=== PATIENT | female | born 1995 | race Caucasian/White ===

== ENCOUNTER 2024-07-13 15:47 | Outpatient (CLI) | payer OTHER, SELFPAY ==
--- NOTE | ~2024-07-13 | US_ITS ---
EXAMINATION: US OB <= 14 weeks fetus DATE: 07/13/2024 16:14 INDICATION: Uncertain dates. TECHNIQUE: Real-time transabdominal pelvic ultrasound was performed. COMPARISON: None. FINDINGS: The uterus measures 10.0 x 6.0 x 0.3 cm. There is an intrauterine gestational sac. A yolk sac is iden tified. The crown rump length measures 2.6 cm, which correlates with an estimated gestational age of 9 weeks and 3 day(s) (+/-) 6 day(s). heart motion is identified measuring 174 beats per minute (bpm) by M-mode Doppler. The right ovary measures 3.6 x 1.8 x 2.6 cm. The left ovary measures 2.9 x 1.6 x 2.1 cm. There is no free fluid in the pelvis. IMPRESSION: 1. Single living intrauterine gestation with estimated date of delivery of 02/12/2025. Reviewed, dictated and finalized at location A. IMPRESSION: 1. Single living intrauterine gestation with estimated date of delivery of 01/16.
== END 2024-07-13 15:48 ==
LOC: MICIMG 15:50
PROVIDERS: PCP Advanced Practice Midwife; Visit Provider Advanced Practice Midwife
DX: Z36.87 Encounter for antenatal screening for uncertain dates (principal)
CPT/HCPCS: 76801

== ENCOUNTER 2024-09-16 15:40 | Outpatient (CLI) | payer OTHER, SELFPAY ==
--- NOTE | ~2024-09-16 | US_ITS ---
US OB /maternal detail DATE: 09/16/2024 16:22 INDICATION: anatomy screen TECHNIQUE: Real-time imaging and Doppler analysis COMPARISON: 07/13/2024 obstetrical ultrasound FINDINGS: Live rosas intrauterine gestation, fetus in breech presentation. movement is visu alized. heart rate of 133 bpm. Anterior placenta, lateral margin 4.2 cm above the internal os. Cervical length: 3.7 cm. Subjectively normal amount of amniotic fluid. ventricles, choroid plexus and cerebellum cisterna magna appear normal. Normal nuchal fold. Fet al upper lip normal. spine intact. diaphragm intact. Fluid demonstrated stomach and urinary bladder. No evidence of hydronephrosis. Three-vessel cord with normal insertion. 4 extremities are demonstrated. Biparietal diameter 4.24 cm; 18 weeks 6 days Head circumference 15.92 cm; 18 weeks 5 days Abdominal circumference 12.95 cm; 18 weeks 3 days Femur length 2.69 cm; 18 weeks 1 day Composite age by Hadlock formula is 18 weeks 4 days +/- 1 week 2 days with GLENYS of 02/13/2025. Estimated weight is 238.6 +/- 30 6 g. Estimated weight-GP: 28.1% Head circumference/abdominal circumference 1.23, within normal range of 1.0, 951.27 Femur length/head circumference 16.90, within normal range of 15.97-18.17 IMPRESSION: Breech presentation Estimated gestational age of 18 weeks 4 days +/- 1 week 2 days; GLENYS: 02/13/2025 Reviewed, dictated and finalized at Location A. Reviewed, dictated and finalized at location A.
== END 2024-09-16 15:41 | disposition home or self-care (01) ==
LOC: MICIMG 15:40
PROVIDERS: PCP Advanced Practice Midwife; Visit Provider Obstetrics & Gynecology Gynecology
DX: Z36.9 Encounter for antenatal screening, unspecified (principal); Z3A.18 18 weeks gestation of pregnancy
CPT/HCPCS: 76805

== ENCOUNTER 2025-02-10 04:13 | Inpatient (IN) | payer OTHER, SELFPAY ==
[2025-02-10] VITALS (100 sets, daily range): BP systolic 74–158; BP diastolic 30–99; PULSE 78–126; RESP 14–16; TEMP 36.3–36.8; O2SAT 96–100; BMI 35.9
--- OUTSIDE RECORDS SUMMARY | 2025-02-10 04:18 | XMS_ITS | Clinical Summary ---
Author Organization [facility] er Address [address] [place] [address] Care Team Providers Care Product Safety Head Name Role Phone Unavailable Primary Care Provider Unavailabl e Allergies No known active allergies Medications doxylamine (UNISOM) 25 mg tablet Take 25 mg by mouth nightly as needed for sleep Active folic acid (FOLVITE) 400 mcg tabletIndications :Encounter for supervision of normal first in first trimester TAKE 1 TABLET BY MOUTH DAILY. 30 tablet 11 2 Active Additional Information Patient not taking.Reported on 02/23/2023 docusate sodium (COLACE) 100 mg capsuleIndication s:constipation Take 1 capsule (100 mg total) by mouth 2 (two) times a day Take one capsule twice daily for 7 days. Then take up to one capsule twice daily as needed for constipation/st raining. If having loose stools, stop medication. Restart if constipation/st raining. 40 capsule 3 Active Additional Information Patient not taking.Reported on 02/23/2023 acetaminophen (TYLENOL) 500 mg tablet Take 2 tablets (1,000 mg total) by mouth every 6 (six) hours Take 1000 mg every 6 hours for 3 days, then take up to 1000 mg every 6 hours as needed for pain. 30 tablet 3 Active Additional Information Patient not taking.Reported on 02/23/2023 oxyCODONE (ROXICODONE) 5 mg immediate release tabletIndications :Pain Take 1 tablet (5 mg total) by mouth every 4 (four) hours as needed for pain Take 5 mg every 4 hours as needed for pain not controlled by other medications. Gradually decrease amount taken. 24 tablet 3 Active Additional Information Patient not taking.Reported on 02/23/2023 ibuprofen (ADVIL,MOTRIN) 600 mg tablet Take 1 tablet (600 mg total) by mouth every 6 (six) hours Take one tablet every 6 hours for 3 days, then take up to one tablet every 6 hours as needed for pain. 30 tablet 3 Active Additional Information Patient not taking.Reported on 02/23/2023 vitamin ferrous fumarate-folic () 28 mg iron- 800 mcg tabletIndications :lactating mother Take 1 tablet by mouth daily 30 tablet 11 3 Active Additional Information Patient not taking.Reported on 02/23/2023 norethindrone (MICRONOR) 0.35 mg tabletIndications : Contraception Take 1 tablet (0.35 mg total) by mouth daily 28 tablet 12 3 Active hydrocortisone 2.5 % creamIndications: Hemorrhoids, unspecified hemorrhoid type Apply topically 2 (two) times a day 28 g 4 Active Active Problems Problem Noted Date Diagnosed Date History of delivery 02/23/2023 Arrested active phase of labor 01/22/2023 Overview (01/22/2023): Added automatically from request for surgery [id number] Resolved Problems Problem Noted Date Diagnosed Date Resolved Date Labor and delivery, indication for care 01/22/2023 02/23/2023 Cephalopelvic disproportion 01/22/2023 02/23/2023 Overview (01/22/2023): Added automatically from request for surgery [id number] 40 weeks gestation of 01/22/2023 02/23/2023 Overview (01/22/2023): Added automatically from request for surgery [id number] Encounter for supervision of normal in third trimester 11/20/2022 02/23/2023 31 weeks gestation of 11/20/2022 02/23/2023 Nausea/vomiting in 07/08/2022 02/23/2023 Well woman exam with routine gynecological exam 07/28/2021 11/06/2022 Immunizations Immunization Administration Dates Next Due Tdap 10/24/2022,01/15/2021 Varicella 01/25/2023(Deferred: Patient Ref used) Surgical History Surgery Date Site/Laterality Comments WISDOM TOOTH EXTRACTION Social History Tobacco Use Types Packs/Day Years Used Date Smoking Tobacco: Never Smokeless Tobacco: Never Tobacco Cessation:Counseling Given: Not Answered PHQ-2 Answer Date Recorded PHQ-2 Total Score (If total score is 3 or more points, staff should administer the PHQ-9) 0 02/23/2023 Personal Safety Answer Date Recorded Getting School Help Needed Denies 12/19 Comments Unknown Sex and Gender Information Value Date Recorded Sex Assigned at Not on file Legal Sex Female 9:27 PM SQUIRREL MAN Gender Identity Not on file Sexual Orientation Not on file Obstetrics History Para Term AB IAB SAB Ectopic Multiple Livin g Live Births 1 1 1 0 0 0 0 0 0 1 1 Date Outcome GA Total Labor Labor/2nd/3rd Weight Sex Type Anes PTL Emily A1 A5 Name Clin 023 Term 40w 2d 8h 00m 3h 30m/4h 29m/0h 01m 3.374 kg (7 lb 7 oz) F C-Sec tion Epidur al N Livin g 8 9 HUTSO N,GIR LMAGG IE Tez Wolff MD Complications:None Delivery Location:This [facility] ([facility]) Last Filed Vital Signs Vital Sign Reading Time Taken Comments Blood Pressure 118/76 12/22/2023 1:20 PM SQUIRREL MAN Pulse 80 12/22/2023 1:20 PM SQUIRREL MAN Temperature 36.6 C (97.8 F) 01/25/2023 8:00 PM CDT Respiratory Rate 14 02/23/2023 10:38 AM CDT Oxygen Saturation 99% 12/22/2023 1:20 PM SQUIRREL MAN Inhaled Oxygen Concentration - - Weight 75.8 kg (167 lb) 12/22/2023 1:20 PM SQUIRREL MAN Height 157.5 cm (5' 2 ) 12/22/2023 1:20 PM SQUIRREL MAN Body Mass Index 30.54 12/22/2023 1:20 PM SQUIRREL MAN Plan of Treatment Health Maintenance Due Date Last Done Comments Varicella Vaccines (1 of 2 - 13+ 2-dose series) 2009 Hepatitis B Screening 2014 Cervical Cancer Screening 01/01/2023 01/01/2022 Depression Screening 02/24/2024 02/23/2023, 01/29/2023 Covid-19 Vaccine (3 - 2023-2 5 season) 2024 03/26/2021, 02/21/2021 Influenza Vaccine (#1) 2024 Regular Well Visit/Exam 18-64 12/22/2024, 07/24/2021 DTaP/Tdap/Td Vaccine (3 - Td or Tdap) 10/24/2032 10/24/2022, 01/15/2021 Hepatitis C Screening Completed 07/08/2022 HPV Vaccines Aged Out No longer eligi ble based on patient's age to complete this topic Pneumococcal vaccine <65 Aged Out No longer eligible based on patient's age to complete this topic Procedures Procedure Name Priority Date/Time Associated Diagnosis Comments HEPATITIS C ANTIBODY Routine 07/08/2022 10:10 AM CDT Encounter for supervision of normal first in first trimester PAP WITH REFLEX TO HIGH RISK HPV Routine 01/01/2022 9:38 AM SQUIRREL MAN Well woman exam with routine gynecological exam from Last 3 Months or Most Recently Relevant to Health Maintenance Results * Hepatitis C antibody (07/08/2022 10:10 AM CDT) Hep C Ab Nonreactive Nonreactive [facility] Comment: Antibodies to HCV not detected. Does NOT exclude the possibility of recent exposure to HCV. Testing performed by: [facility], [address] [place] [address] Blood 07/08/2022 10:1 0 AM CDT 07/08/2022 6:25 PM CDT us Tez Powers MD LAB MICROBIOLOGY - GENERAL O RDERABLES Edited Result - Final [facility] [address] [place] [address] * Pap with reflex to High Risk HPV (01/01/2022 9:38 AM SQUIRREL MAN) CLINICAL INFORMATION: ANNUAL [facility] LMP UNKNOWN [facility] Previous Pap INFORMATION NOT PROVIDED [facility] Prev. Bx INFORMATION NOT PROVIDED [facility] SOURCE: Cervix, Endocervix [facility] Pap, specimen adequacy [facility] Comment: Satisfactory for evaluation. Endocervical/transformation zone component present. Age and/or menstrual status not provided HPV interp Negative for intraepithelial lesion or malignancy. [facility] COMMENTS This Pap test has been evaluated with computer assisted technology. [facility] Software Quality Tester [facility] Comment: CESILIA CT(ASCP) CT screening location: [place] [address] [address] [address] Review senior it recruiter [facility] Comment: ANI CT(ASCP) CT screening location: [place] [address] [address] [address] Comment [facility] Comment: EXPLANATORY NOTE: The Pap is a screening test for cervical cancer. It is not a diagnostic test and is subject to false negative and false positive results. It is most reliable when a satisfactory sample, regularly obtained, is submitted with relevant clinical findings and history, and when the Pap result is evaluated along with historic and current clinical information. Thin prep 01/01/2022 9:38 AM SQUIRREL MAN 01/02/2022 3:47 AM SQUIRREL MAN Tez Powers MD LAB CYTOLOGY ORDERABLES Jesica l Result [place] [address] [place] [address] from Last 3 Months or Most Recently Relevant to Health Maintenance Insurance [facility] Advance Directives For more information, please contact: [phone] * Full Code (Latest Code Status on File) Date Activated Date Inactivated Comments 01/22/2023 6:00 PM 01/26/2023 3:42 AM * Full Code Date Activated Date Inactivated Comments 01/22/2023 1:51 AM 01/22/2023 6:00 PM Full CPR in ca se of cardiopulmonary arrest
--- OUTSIDE RECORDS SUMMARY | 2025-02-10 04:18 | XMS_ITS | Referral Summary ---
Author Organization [facility] er Address [address] [place] [address] Care Team Providers Care Robotic Welder Name Role Phone Unavailable Primary Care Provider [...] (01/22/2023): Added automatically from request for surgery [id number] Resolved Problems Problem Noted Date Diagnosed Date Resolved Date Labor and delivery, indication for care 01/22/2023 02/23/2023 Cephalopelvic disproportion 01/22/2023 02/23/2023 Overview (01/22/2023): Added automatically from request for surgery [id number] 40 weeks gestation of 01/22/2023 02/23/2023 Overview (01/22/2023): Added automatically from request for surgery [id number] Encounter for supervision of normal in third trimester 11/20/2022 02/23/2023 31 weeks gestation of 11/20/2022 02/23/2023 Nausea/vomiting in 07/08/2022 02/23/2023 Well woman exam with routine gynecological exam 07/28/2021 11/06/2022 Immunizations Immunization Administration Dates Next Due Tdap 10/24/2022,01/15/2021 Varicella 01/25/2023(Deferred: Patient Ref used) Social History Tobacco Use Types Packs/Day Years [...] on file Legal Sex Female 9:27 PM MANAGER SCIENCE Gender Identity Not on file Sexual Orientation Not on file Last Filed Vital Signs Vital Sign Reading Time Taken Comments Blood Pressure 118/76 12/22/2023 1:20 PM MANAGER SCIENCE Pulse 80 12/22/2023 1:20 PM MANAGER SCIENCE Temperature 36.6 C (97.8 F) 01/25/2023 8:00 PM CDT Respiratory Rate 14 02/23/2023 10:38 AM CDT Oxygen Saturation 99% 12/22/2023 1:20 PM MANAGER SCIENCE Inhaled Oxygen Concentration - - Weight 75.8 kg (167 lb) 12/22/2023 1:20 PM MANAGER SCIENCE Height 157.5 cm (5' 2 ) 12/22/2023 1:20 PM MANAGER SCIENCE Body Mass Index 30.54 12/22/2023 1:20 PM MANAGER SCIENCE Plan of Treatment Not on file Procedures Procedure Name Priority Date/Time Associated Diagnosis Comments HEPATITIS C ANTIBODY Routine 07/08/2022 10:10 AM CDT Encounter for supervision of normal first in first trimester PAP WITH REFLEX TO HIGH RISK HPV Routine 01/01/2022 9:38 AM MANAGER SCIENCE Well woman exam with routine gynecological exam from Last 3 Months or Most Recently Relevant to Health Maintenance Results * Hepatitis C antibody (07/08/2022 10:10 AM CDT) Hep C Ab Nonreactive Nonreactive [facility] Comment: Antibodies to HCV not detected. Does NOT exclude the possibility of recent exposure to HCV. Testing performed by: [facility], [address] [facility], [place]., [address] Blood 07/08/2022 10:1 0 AM CDT 07/08/2022 6:25 PM CDT Tez Powers MD LAB MICROBIOLOGY - GENERAL O RDERABLES Edited Result - Final [facility] [address] [facility] Department [place] [address] * Pap with reflex to High Risk HPV (01/01/2022 9:38 AM MANAGER SCIENCE) CLINICAL INFORMATION: ANNUAL [facility] LMP UNKNOWN [facility] Previous Pap INFORMATION NOT PROVIDED [facility] Prev. Bx INFORMATION NOT PROVIDED [facility] SOURCE: Cervix, Endocervix [facility] Pap, specimen adequacy [facility] Comment: Satisfactory for evaluation. Endocervical/transformation zone component present. Age and/or menstrual status not provided HPV interp Negative for intraepithelial lesion or malignancy. [facility] COMMENTS This Pap test has been evaluated with computer assisted technology. [facility] Epic Prelude Analyst [facility] Comment: YTali, CT(ASCP) CT screening location: [place] [address] [place] [address] Review career technology teacher [facility] Comment: ANI, CT(ASCP) CT screening location: [place] [address] [place] [address] Comment [facility] Comment: EXPLANATORY NOTE: The Pap is a [...] clinical information. Thin prep 01/01/2022 9:38 AM MANAGER SCIENCE 01/02/2022 3:47 AM MANAGER SCIENCE Tez Powers MD LAB CYTOLOGY ORDERABLES Jesica l Result Performing Organization Address City/[facility]/ZIP Co de Phone Number [place] [address] [place] [address] from Last 3 Months or Most Recently Relevant to Health Maintenance Insurance [facility] [place] [facility] Advance Directives For more information, please contact: [phone] * Full Code (Latest Code Status on File) Date Activated Date Inactivated Comments 01/22/2023 6:00 PM 01/26/2023 3:42 AM * Full Code Date Activated Date Inactivated Comments 01/22/2023 1:51 AM 01/22/2023 6:00 PM Full CPR in ca se of cardiopulmonary arrest
--- OUTSIDE RECORDS SUMMARY | 2025-02-10 04:19 | XMS_ITS | Data Portability ---
Author Organization [facility] Address [address] [place] [address] Care Team Providers Care Nursing Staffing Coordinator Name Role Phone RYLAN NAPIER Primary Care Provider [phone] Assessment Encounter Date Assessment Date Assessment LastModified by Organization Details LastModified Time 12/30/2024 12/30/2024 Patient is _33__weeks . Discussed plan. Not available 12/30/2024 10:56:05 01/11/2025 01/11/2025 Patient is _35__weeks . Discussed plan. Not available 01/11/2025 11:33:43 01/27/2025 01/27/2025 Patient is _37__weeks . Discussed plan. [email or web address] Not available 01/27/2025 12:15:06 02/03/2025 02/03/2025 Patient is _38__weeks . Discussed plan. [email or web address] Not available 02/03/2025 11:44:04 Plan of Treatment Reminders Order Date Submit Date Provider Last Modified By Organization Details Last Modified Time Details Appointments None record ed. Lab None record ed. Referral None record ed. Procedures None record ed. Surgeries None record ed. Imaging None record ed. Medication Orders None record ed. Patient TargetsNo targets recorded. Patient InstructionsNo instructions recorded. Reason for Referral None Reported. Results Created Date Observation Date Name Description Value Unit Range Abnormal Flag Note LastModifiedBy Organization Detail LastModifiedTime 12/01/19 25 12/01/2024 CT/GC AND TRICH OMONA S VAGIN ROSA M (RRNA ), URINE chlamydia trachomatis, PCR Negati ve negati ve Not Available [facility] (Lab) [address], [place], [address], 12/04/2024 02:18:43 12/01/19 25 12/01/2024 CT/GC AND TRICH OMONA S VAGIN ROSA M (RRNA ), URINE neisseria gonorrhoeae, PCR Negati ve negati ve Not Available [facility] (Lab) [address], [place], [address], 12/04/2024 02:18:43 12/01/19 25 12/01/2024 CT/GC AND TRICH OMONA S VAGIN ROSA M (RRNA ), URINE trichomonas vaginalis ribosomal RNA (rrna) Negati ve negati ve Not Available [facility] (Lab) [address], [place], [address], 12/04/2024 02:18:43 12/01/1912/01/2024 CULTU RE: URINE result report SEE RESULT S BELOW Test: Cultu re: Urine Speci men Sourc e: Urine - Clean Catch Speci men Type: Urine Speci men Date: 2024 1502 Resul t Date: 2024 0114 Resul t Statu s: Final resul t Abnor mal: No Resul ting Lab: [facility] [address] [place] [address] Tel: CULTU RE ----- ----- ----- --- Organ ism(s ) consi stent with uroge nital or skin raymon . Repea t cultu re if sympt oms indic ate. Not Available [facility] (Lab) [address], [place], [address], 12/04/2024 02:18:44 12/01/1912/01/2024 drug scree n, urine Amphetamines : negati ve Not Available [facility] [address], [place], [address], 12/01/2024 11:11:36 12/01/192025 drug scree n, urine Cannabinoids : negati ve Not Available [facility] [address], [place], [address], 12/01/2024 11:11:36 12/01/19 25 12/01/2024 drug scree n, urine Cocaine: negati ve Not Available [facility] [address], [place], [address], 12/01/2024 11:11:36 12/01/19 25 12/01/2024 drug scree n, urine Opiates: negati ve Not Available [facility] [address], [place], [address], 12/01/2024 11:11:36 12/01/19 25 12/01/2024 drug scree n, urine Phenocyclidi ne: negati ve Not Available [facility] [address], [place], [address], 12/01/2024 11:11:36 12/01/19 25 12/01/2024 drug scree n, urine Barbiturates : negati ve Not Available [facility] [address], [place], [address], 12/01/2024 11:11:36 12/01/19 25 12/01/2024 drug scree n, urine Benzodiazepi shania: negati ve Not Available [facility] [address], [place], [address], 12/01/2024 11:11:36 12/01/19 25 12/01/2024 drug scree n, urine Ethanol: negati ve Not Available [facility] [address], [place], [address], 12/01/2024 11:11:36 12/01/19 25 12/01/2024 drug scree n, urine Hallucinogen s: negati ve Not Available [facility] [address], [place], [address], 12/01/2024 11:11:36 12/01/1912/01/2024 drug scree n, urine Inhalants: negati ve Not Available [facility] [address], [place], [address], 12/01/2024 11:11:36 12/01/19 25 12/01/2024 drug scree n, urine Anabolic Steroids: negati ve Not Available [facility] [address], [place], [address], 12/01/2024 11:11:36 12/01/19 25 12/01/2024 drug scree n, urine Other: negati ve Not Available [facility] [address], [place], [address], 12/01/2024 11:11:36 01/11/20 25 01/11/2025 CULTU RE: GROUP B STREP SCREE N, REFLE X SUSCE PTIBI LITY result report SEE RESULT S BELOW Test: Cultu re: Group B Strep , Refle x Susce ptibi lity ([facility] ) Speci men Sourc e: Vagin a/Rec yeni Speci men Type: Vagin al/Re ctal Speci men Date: 2024 1455 Resul t Date: 025 1400 Resul t Statu s: Final resul t Abnor mal: No Resul ting Lab: [facility] [address] [address] Tel: CULTU RE ----- ----- ----- --- No Group B strep isola roseanne at 2 days (prem ctive broth enhan cemen t) Not Available [facility] (Lab) [address], [place], [address], 01/14/2025 15:04:56 12/01/1912/01/2024 US, obste tric, follo w-up No observ ation record ed. [email or web address] [facility] [address], [place], [address], 12/01/2024 13:11:23 12/01/19 25 12/01/2024 US, obste tric, follo w-up No observ ation record ed. [email or web address] [address], [place], [address], 12/07/2024 07:33:07 Result Notes None recorded. Problems Name Problem SNOMED Code Status Onset Date Resolution Date Notes Provider Name and Address Organization Details Recorded Time 04488899 Active [address] [facility], [facility] 5 11:14:39 section Active pushed x 5 hours, 40.3 weeks, 7 lbs Keyla Meng CNM [address], [place], [address], [place] [facility] 5 12:26:07 Problem Notes None recorded. Procedures Surgical History Date Name Laterality Status Provider Name and Address Organization Details Recorded Time 4 Date of Last Pap Smear completed Briana Palomares [facility] 12/18/2024 13:20:44 3 section completed Briana Palomares [facility] 12/16/2024 15:37:35 4 extraction of wisdom tooth completed Briana Palomares [facility] 12/16/2024 15:37:44 Imaging Results Imaging Date Name Status LastModified by Organiz ation Details LastModified Time 12/01/2024 US, obstetric, follow-up completed [email or web address] [facility] [address], [place], [address], 12/01/2024 13:11:12/01/2024 US, obstetric, follow-up completed [address], [place], [address], 12/07/2024 07:33:07 Procedure Notes None recorded. Medical Equipment None Reported. Allergies No known drug allergies Medications Name Sig Start Date Stop Date Status Note LastModified by Organization Details LastModified Time fluconazole 150 mg tablet take 1 tablet by oral route once 09/07 completed Not Available Not Available Not Available hydrocortis one 2.5 % topical cream APPLY TOPICALLY TO THE AFFECTED AREA TWICE DAILY 12/01 completed Not Available Not Available Not Available Estarylla 0.25 mg-0.035 mg tablet TAKE 1 TABLET DAILY 12/01 completed Not Available Not Available Not Available Vitals Date Recorded Body height Body mass index (BMI) Body weight Systolic blood pressure Diastolic blood pressure Provider Name and Address Organization Details Last Updated DateTime 12/30/2024 165.1 cm 32.6 kg/m2 45400.10 452 g 116 mm[Hg] 79 mm[Hg] Briana Palomares [facility] 10:52:47 Date Recorded Body height Body mass index (BMI) Body weight Systolic blood pressure Diastolic blood pressure Provider Name and Address Organization Details Last Updated DateTime 01/11/2025 165.1 cm 33.1 kg/m2 71499.88 163 g 120 mm[Hg] 82 mm[Hg] Briana Palomares [facility] 11:09:45 Date Recorded Body height Body mass index (BMI) Body weight Systolic blood pressure Diastolic blood pressure Provider Name and Address Organization Details Last Updated DateTime 01/20/2025 165.1 cm 33.1 kg/m2 14642.88 g 124 mm[Hg] 81 mm[Hg] Maddi Cabrera [facility] 10:34:35 Date Recorded Body height Body mass index (BMI) Body weight Systolic blood pressure Diastolic blood pressure Provider Name and Address Organization Details Last Updated DateTime 01/27/2025 165.1 cm 33.4 kg/m2 29877.07 g 118 mm[Hg] 78 mm[Hg] Keyla Meng, [facility] [address], [place], [address], [facility] 5 12:09:06 Date Recorded Body height Body mass index (BMI) Body weight Systolic blood pressure Diastolic blood pressure Provider Name and Address Organization Details Last Updated DateTime 02/03/2025 165.1 cm 33.6 kg/m2 08558.66 g 125 mm[Hg] 81 mm[Hg] Briaan Palomares [facility] 5 11:41:48 Social History Question Answer Notes LastModified by Organizat ion Details LastModified Time Tobacco Smoking Status Never Smoker Carey muniz, [facility] 09/07/2020 15:23:33 What Is Your Level Of Alcohol Consumption? None [email or web address] Information not available 12/16/2024 If You Are , What Was Your Level Of Alcohol Consumption Prior To ? Occasional [email or web address] Information not available 12/16/2024 Are You Blind Or Do You Have Difficulty Seeing? No [email or web address] Information n ot available 12/16/2024 What Is Your Level Of Caffeine Consumption? Occasional [email or web address] Information not available 12/16/2024 In The 14 Days Before Symptom Onset, Have You Had Close Contact With A Laboratory-confirm ed COVID-19 While That Case Was Ill? No [email or web address] Information n ot available 12/16/2024 In The 14 Days Before Symptom Onset, Have You Had Close Contact With A Person Who Is Under Investigation For COVID-19 While That Person Was Ill? No [email or web address] Information not available 12/16/2024 Have You Been To An Area Known To Be High Risk For COVID-19? No [email or web address] Information not available 12/16/2024 Are You Deaf Or Do You Have Serious Difficulty Hearing? No [email or web address] Information not available 12/16/2024 What Type Of Diet Are You Following? REGULAR [email or web address] Information n ot available 12/16/2024 Do You Use Your Seat Belt Or Car Seat Routinely? Yes [email or web address] Information not available 12/16/2024 Do You Have Smoke And Carbon Monoxide Detectors In Your Home? Yes [email or web address] Information not available 12/16/2024 Do You Feel Stressed (tense, Restless, Nervous, Or Anxious, Or Unable To Sleep At Night)? [id number] [email or web address] Information not available 12/16/2024 Do You Use Any Illicit Or Recreational Drugs? No [email or web address] Information not available 12/16/2024 Do You Use Sunscreen Routinely? Yes [email or web address] Information not available 12/16/2024 Has Tobacco Cessation Counseling Been Provided? No [email or web address] Information not available 12/16/2024 Do You Or Have You Ever Used Any Other Forms Of Tobacco Or Nicotine? No Information not available 12/16/2024 Sex: Unknown Functional Status Question Answer Note LastModified by Organizat ion Details LastModified Time Do you have difficulty walking or climbing stairs? No [email or web address] Information not available 12/16/2024 Are you able to walk? YESWOREST [email or web address] Information not available 12/16/2024 Are you able to care for yourself? Yes [email or web address] Information not available 12/16/2024 Do you have difficulty dressing or bathing? No [email or web address] Information not available 12/16/2024 What is your exercise level? Occasional [email or web address] Information not available 12/16/2024 Mental Status None recorded. Family History Relationship Description Onset Age of this Age Resolved Age Notes LastModified by Organization Details LastModified Time Paternal Grandfather Diabetes mellitus [email or web address] Not available 2019 15:23:16 Mother Diabetes mellitus [email or web address] Not available 12/16 15:34:08 Notes:heart problems- pat. g randfather Mother: No history of Cervical cancer Paternal grandfather: Heart problems, Diabetes mellitus Medical History Condition Response Allergies (Food, seasonal, environmental ) N Other N Drug/Latex Allergies/Reactions N Blood Transfusion N Breast Cancer N Dermatologic Disorders N Lung Disease N Defects or Inherited Disease N Breast Problem N Gestational Diabetes N Hematologic disorders N Anesthesia Complications N History of STI N Deep Vein Thrombosis N Polycystic ovary syndrome N Anxiety Disorder N Autoimmune disease N Arthritis N Polyps N Infertility N Acid Reflux (GERD) N History of abnormal pap N Cancer N Varicosities N Stroke N Neurologic/Epilepsy N Endometriosis N High Cholesterol N Fibromyalgia N Headaches N Kidney Disease N Heart Problems N Thyroid Problems N Kidney or Bladder Problems N GI Problems N Eating Disorder N Anemia N Art (IVF or FET) N Psychiatric Illness N Ovarian Cancer N Diabetes N Pulmonary (TB, Asthma) N Hepatitis/Liver Disease N No Past Medical History N Eczema N Urinary Tract Infection N Abuse/Domestic Violence N Asthma N Trauma/Violence N Depression/ depression N Heart Disease N Pre-Eclampsia N Hypertension N Osteoporosis N Thrombophilias N Gynecological History Statement/Question Response Abnormal Pap N Flow Moderate Date of Last Colonoscopy Date of LMP 04/16/2024 Sexually Active? Y Date of DEXA bone scan STIs/STDs N Date of Last Pap Smear 07/11/2024 Sexual Problems? N Current Control Method LMP Approximate Obstetrics History GPAL:G 2 P 1 0 0 1 Type Value Full Term 1 Living 1 Total 2 Past Encounters Encounter ID Performer Location Encounter Start Date Encounter Closed Date Diagnosis/Indication Diagnosis SNOMED-CT Code Diagnosis ICD10 Code Diagnosis Note [id number] Annamaria Mosher , [facility] [address] [address] 09/07/2020 15:06:32 09/07/2020 17:00:25 Gynecologic examination 30609266 Z01.419 Take Calcium with Vitamin D 1200mg daily if not receiving in daily diet. It is strongly advised to have an annual flu shot and up can obtain at most pharmacies . If you have not had a TDap shot in the last 10 years you should obtain one as well. Discussed with patient & provided with informatio n regarding Gardisil vaccine to prevent the 4 strains for HPV that cause cervical cancer if under age 26. Encourage safe sexual practices, to use condoms and limit partners if not already in a monogamous relationsh ip. Do monthly self breast exams. Have mammogram yearly or every other year depending on family history. BRCA testing is now available for patients with strong genetic history of female cancer. If interested contact the office. Engage in daily exercise of low impact aerobic exercise 45-60 minutes 4-5 times weekly. Avoid tobacco and illicit drugs as well as using moderation with alcohol intake less than 1-2 8 oz beverages daily. This lifestyle behavior pattern will lead to less health conditions and longer life span. If BMI greater than 25 weight watchers or dietary consult advised. Patient received above instructio ns, and questions have been answered. If you have any questions please call or respond to this email. Patient was made aware of the patient portal and may obtain a paper copy of today's plan if desired. Opts to defer pap this year due to monogamous relationsh ip & norm pap hx. Declines need std screening. 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 [id number] Tiffany Galindoconrado [facility] [address] [address] 12/01/2024 09:30:18 12/01/2024 10:27:36 Medical examination for suspected condition 041561025 Z03.74 Z3A.29 [id number] Briana Palomares [facility] [address] [address] 12/01/2024 09:46:43 12/01/2024 12:39:18 Gestation period, 29 weeks 15722924 Z3A.29 Routine an tenatal care 983671962 Z34.90 Venereal d isease screening 776614825 Z11.3 [id number] [facility] [address],[place] [address] 12/16/2024 15:00:08 12/16/2024 15:57:01 Gestation period, 31 weeks 63721024 Z3A.31 [id number] [facility] [address] [address] 12/30/2024 10:28:15 12/30/2024 11:39:38 Gestation period, 33 weeks 57939111 Z3A.33 [id number] [facility] [address] [address] 01/11/2025 10:30:45 01/11/2025 11:38:55 Gestation period, 35 weeks 81151522 Z3A.35 [id number] BAM MEDINA MD [facility] [address],[place] [address] 01/20/2025 09:44:03 01/20/2025 11:18:53 Uterine scar from previous surgery affecting 05974049 O34.29 Gestation period, 36 weeks 52079502 Z3A.36 [id number] Keyla Meng [facility] [address] [address] 01/27/2025 12:01:06 01/27/2025 12:20:12 Gestation period, 37 weeks 96747846 Z3A.37 [id number] Keyla Meng [facility] [address] [address] 02/03/2025 10:56:36 02/03/2025 12:13:26 Gestation period, 38 weeks 19425235 Z3A.38 Health Concerns Section Related Observation LastModified by Organization Detai ls LastModified Time None Recorded Concern Status LastModified by Organization Details LastModified Time None Recorded Advance Directives Directive None Recorded Payers Encounter Date Sequence Insurance Name Policy Number Policy Jones Covered Member ID Jones Member ID Guarantor Name 12/30/2024 1 [employer] Chu Stroud [id number] 01/11/2025 1 [employer] [place] [id number] 01/20/2025 1 [employer] Chu Maximus [id number] 01/27/2025 1 [employer] [place] [employer] [id number] 02/03/2025 1 [employer] [place] [id number] OBGyn Episode Ob Episode Information Episode Created Date Number of Fetuses Patient Bloodtype Patient rh Status Prepregnancy Weight lbs Domestic Partner Domestic Partner Phone Father Name Oil Treater Status 12/16/19 25 1 CLOSED Fetus Data First Name Last Name Admitted to NICU Weight (g) Sex Living Outcome Pediatric Complications Fetus ID Race Codes Race Delivery Type 3175.14 4 F Full Term [id number] Primary Toby Calculation Initial Toby Date Initial Exam Date Initial Exam Provider Initial Ultrasound Date Last Menstrual Period Date Ultra Sound Weeks Gestation 0 Eighteen To Twenty Week Toby Update Ultra Sound Date Fundal Height At Umbil Quickening Date Ultra Sound Latest Weeks Gestation Final Toby Confirmed By Final Toby Confirmed Date Final Toby Date Ultra Sound Latest Days Gestation 0 0 Menstrual History Last Menstrual Date Menses Monthly On Bcp Conception Prior Menses Frequency Hcg Plus Date Menarche Onset Age Delivery Information Delivery Date Delivery Type Labor Anesthesia Weeks Gestation Incision Type Labor Labor Length Hrs Delivered By Post Complications Tubal Sterilization Discharge Date Comments 3 40 Discharge Information Feeding Method Contraceptive Method Maternal HG B and HCT Levels Ob Episode Information Episode Created Date Number of Fetuses Patient Bloodtype Patient rh Status Prepregnancy Weight lbs Domestic Partner Domestic Partner Phone Father Name Oil Treater Status 12/01/19 25 1 A Positive 177 Chu Maximus OPEN Fetus Data First Name Last Name Admitted to NICU Weight (g) Sex Living Outcome Pediatric Complications Fetus ID Race Codes Race Delivery Type [id number] Problems Problem Notes Problem Name Start Date End Date Resolution Snomed Code Not e section [id number] pus hed x 5 hours, 40.3 weeks, 7 lbs Toby Calculation Initial Toby Date Initial Exam Date Initial Exam Provider Initial Ultrasound Date Last Menstrual Period Date Ultra Sound Weeks Gestation 08/08/2024 08/08/2024 05/14/2024 13 Eighteen To Twenty Week Toby Update Ultra Sound Date Fundal Height At Umbil Quickening Date Ultra Sound Latest Weeks Gestation Final Toby Confirmed By Final Toby Confirmed Date Final Toby Date Ultra Sound Latest Days Gestation 09/16/20 24 18 [email or web address] 12/01/2024 02/13/20 25 4 Pre- Flowsheet Flowsheet Date 12/01/2024 Farris Score Blood Edema Fundus Height Fundus Units Glucose Ketones Leukocytes Nitrite Labor Signs Protein Cervic Dilation Cervic Effacement Cervic Station none none trace Type Weight in lbs Pre/Post Dialysis Refused Weight 195.542839236221 BP Diastolic BP Location Tested BP Systolic BP Type 82 118 Fetus Heart Rate Present Fetus Movement A Yes Comments Patient states that has had rash on face and has cramping. reviewed precautions otc meds ok, transfer of care, reviewed previous discussed option for rpt, pt would like to try tolac, will have pt speak to md after next us, todays growth efw 31%, ok for tdap and rsv, order givem, reviewed records, f/u 2 weeks Flowsheet Date 12/16/2024 Farris Score Blood Edema Fundus Height Fundus Units Glucose Ketones Leukocytes Nitrite Labor Signs Protein Cervic Dilation Cervic Effacement Cervic Station none Type Weight in lbs Pre/Post Dialysis Refused 196.829310269257 BP Diastolic BP Location Tested BP Systolic BP Type 83 129 Fetus Heart Rate Present Fetus Movement A Yes Comments Patient is having some cramp ing. discussed meeting MD prefers female. precautions and education ok to do otc vit d 2000 iu daily, passed GCT, +FM Flowsheet Date 12/30/2024 Farris Score Blood Edema Fundus Height Fundus Units Glucose Ketones Leukocytes Nitrite Labor Signs Protein Cervic Dilation Cervic Effacement Cervic Station neg trace 33 cm Type Weight in lbs Pre/Post Dialysis Refused 196.754799072744 BP Diastolic BP Location Tested BP Systolic BP Type 79 116 Fetus Heart Rate Present A 145 Present Fetus Movement A Yes Comments Patient is having cramping, swelling and nausea. +FM, call for preadmit, precautions and education Flowsheet Date 01/11/2025 Farris Score Blood Edema Fundus Height Fundus Units Glucose Ketones Leukocytes Nitrite Labor Signs Protein Cervic Dilation Cervic Effacement Cervic Station neg trace Type Weight in lbs Pre/Post Dialysis Refused 199.262547053646 BP Diastolic BP Location Tested BP Systolic BP Type 82 120 Fetus Heart Rate Present Fetus Movement A Yes Comments Patient is having some disch arge, swellling and nausea. +FM< US 127 FHR, GBS collected, precautions and education f/u one week Flowsheet Date 01/20/2025 Farris Score Blood Edema Fundus Height Fundus Units Glucose Ketones Leukocytes Nitrite Labor Signs Protein Cervic Dilation Cervic Effacement Cervic Station neg none Type Weight in lbs Pre/Post Dialysis Refused Weight 199.376945542829 BP Diastolic BP Location Tested BP Systolic BP Type 81 L arm 124 sitting Fetus Heart Rate Present A 130 Fetus Movement A Yes Comments Patient c/o Pelvic pain. Goo d movement. No bleeding or cramping. GBS negative. RTC 1 week. Flowsheet Date 01/27/2025 Farris Score Blood Edema Fundus Height Fundus Units Glucose Ketones Leukocytes Nitrite Labor Signs Protein Cervic Dilation Cervic Effacement Cervic Station neg trace Type Weight in lbs Pre/Post Dialysis Refused Weight 201.215562789109 BP Diastolic BP Location Tested BP Systolic BP Type 78 118 Fetus Heart Rate Present Fetus Movement A Yes Comments Patient is having contractio ns, discharge and swelling. declines cervical exam, +FM, precautions and education preadmit complete f/u one week Flowsheet Date 02/03/2025 Fraris Score Blood Edema Fundus Height Fundus Units Glucose Ketones Leukocytes Nitrite Labor Signs Protein Cervic Dilation Cervic Effacement Cervic Station neg trace 1cm 60% -2 Type Weight in lbs Pre/Post Dialysis Refused Weight 202.977366007354 BP Diastolic BP Location Tested BP Systolic BP Type 81 125 Fetus Heart Rate Present A 138 Present Fetus Movement A Yes Comments Patient is having some contr actions, discharge and swelling. desires IOL will schedule for next week, +FM, precautions and education Menstrual History Last Menstrual Date Menses Monthly On Bcp Conception Prior Menses Frequency Hcg Plus Date Menarche Onset Age 0605/14/2023 Delivery Information Delivery Date Delivery Type Labor Anesthesia Weeks Gestation Incision Type Labor Labor Length Hrs Delivered By Post Complications Tubal Sterilization Discharge Date Comments Discharge Information Feeding Method Contraceptive Method Maternal HG B and HCT Levels
[2025-02-10] MEDS: LACTATED RINGERS 1,000 ML 125 ML IV CONT ×2 (05:07→06:28)
[2025-02-10] MEDS: OXYTOCIN 30 UNITS/NS 500 ML 30 UNITS/500 ML BAG IV CONT (05:10)
[2025-02-10 05:15] LABS: Basophils Absolute Auto 0.1 K/mm3 (0.0-0.1); Basophils Percent Auto 0.5 % (0.2-1.2); Eosinophils Absolute Auto 0.2 K/mm3 (0-0.3); Eosinophils Percent Auto 2.1 % (0-4.4); Hematocrit 33.8 % (37.0-47.0); Hemoglobin 10.9 g/dL (12.0-15.0); Immature Granulocyte Absolute 0.05 K/mm3 (0.00-0.031); Immature Granulocyte Percent A 0.5 % (0-0.5); Lymphocytes Percent Auto 23.8 % (18.3-44.2); Mean Corpuscular HGB Conc 32.2 g/dl (32-36); Mean Corpuscular Volume 83.9 fl (80-100); Mean Platelet Volume 10.4 fl (7.4-10.4); Monocytes Absolute Auto 0.5 K/mm3 (0.1-0.6); Monocytes Percent Auto 4.8 % (2.6-8.5); Neutrophils Absolute Auto 6.6 K/mm3 (1.3-6.7); Neutrophils Percent Auto 68.3 % (45.5-73.1); Platelet Count Result 258 k/mm3 (150-375); Red Blood Count 4.03 M/mm3 (4.2-5.4); Red Cell Distribution Width 13.9 % (11.5-14.5); White Blood Count 9.7 K/mm3 (4.5-10.0)
--- NOTE | 2025-02-10 05:49 | P.PNAN_ITS ---
Anes - Eval Pre Procedure Procedure: labor epidural Date/Time: 02/10/25 05:49 Surgeon: kemal Preop Diagnosis: pain during labor Pre Op Diagnosis: Induction Patient Data Age: 29 Gender: F Height: 1.6 m Weight: 92 kg Last Vital Signs Temp 36.4 C 02/10/25 04:49 Pulse 92 02/10/25 05:45 BP 120/77 02/10/25 05:45 O2 Del Method Room Air 02/10/25 04:31 Allergies Allergy/AdvReac Type Severity Reaction Status Date / Time No Known Allergies Allergy Verified 01/14/25 12:31 Home Medications ?Medication ?Instructions ?Recorded ?Confirmed ?Type vit-iron fum-folic ac 1 tablet PO 07/21/24 History doxylamine succinate 25 mg tablet 25 mg PO HS PRN sleep 01/14/25 02/10/25 History (Unisom (doxylamine)) Laboratory Tests 02/10/25 04:51 WBC 9.7 K/mm3 (4.5-10.0) RBC 4.03 L M/mm3 (4.2-5.4) Hgb 10.9 L g/dL (12.0-15.0) Hct 33.8 L % (37.0-47.0) MCV 83.9 fl (80-100) MCH 27.0 pg (26-34) MCHC 32.2 g/dl (32-36) RDW 13.9 % (11.5-14.5) Plt Count 258 k/mm3 (150-375) MPV 10.4 fl (7.4-10.4) Immature Gran % (Auto) 0.5 % (0-0.5) Neut % (Auto) 68.3 % (45.5-73.1) Lymph % (Auto) 23.8 % (18.3-44.2) [place] % (Auto) 4.8 % (2.6-8.5) Eos % (Auto) 2.1 % (0-4.4) Baso % (Auto) 0.5 % (0.2-1.2) Lymph # (Auto) 2.30 K/mm3 (0.9-3.2) Sterling # (Auto) 0.5 K/mm3 (0.1-0.6) Eos # (Auto) 0.2 K/mm3 (0-0.3) Baso # (Auto) 0.1 K/mm3 (0.0-0.1) Abs Immat Gran (auto) 0.05 H K/mm3 (0.00-0.031) Absolute Neuts (auto) 6.6 K/mm3 (1.3-6.7) Absolute Nucleated RBC 0.000 K/mm3 (0.0-0.012) Nucleated RBC % 0.0 % (0.0-0.2) HIV 1&2 Ab/P24 Ag 4thGn Pending Blood Type Pending Antibody Screen Pending Patient hx anesthesia problems: none Family hx anesthesia problems: none Results Review: All pre-operative results and documents have been reviewed as part of the pre- operative evaluation. [facility] Past Medical History Medical History (Updated 02/10/25 @ 05:49 by Luz Stern CRNA) IUP (intrauterine ), incidental Surgical History Surgical History History of Family History Family History (Updated 01/14/25 @ 12:37 by Madie Barahona RN) Mother Diabetes mellitus Grandparent Diabetes mellitus Heart disease Social History Social History Social History: Caffeine-occasionally Smoking status: Never smoker Second hand tobacco smoke exposure: No Alcohol intake: never Substance use: never Substance use type: does not use Do You Feel Safe in your Home?: Yes Lack of Transportation: No Lack of Food: Never True Current Housing: I Have Housing Concerned About Future Housing: No Difficulty Paying Gas/Electric Bills: No Difficulty Paying for Meds: No Currently Unemployed: No Education: Bachelor's Degree Difficulty w/ Childcare or Family Care: No Living arrangements: with family Occupation/Education: occupation Additional occupation/education comments: Homemaker Gender identity (if verbalized by the patient): Female Spiritual care concerns: No Agree to blood products: Yes Exam Day of Procedure 02/10/25 05:49
[2025-02-10 05:55] LABS: Syphilis IgG/IgM Antibody Negative (Negative)
[2025-02-10 06:08] LABS: HIV 1/2 Ab P24 Ag Result Negative (Negative)
[2025-02-10] MEDS: PHENYLEPHRINE 1,000 MCG/10 ML SYRINGE 100 MCG IV PUSH (06:15)
--- NOTE | 2025-02-10 07:36 | PM.IMHP ---
H&P: [facility] History of Present Illness Date/Time: 02/10/25 07:36 Chief Complaint: pt presents for IOL, history of section, no complications with this , epidural in place and pt comfortable, SVE /-2, AROM large amount of clear odorless fluid co-managing with dr. mccall Review of Systems Review of Systems: All systems reviewed & are unremarkable except as noted in HPI and below Constitutional: Constitutional: Reports as per HPI [facility] Past Medical History Medical History (Updated 02/10/25 @ 07:40 by Keyla Meng CNM) IUP (intrauterine ), incidental Surgical History Surgical History History of Family History Family History (Updated 01/14/25 @ 12:37 by Madie Barahona RN) Mother Diabetes mellitus Grandparent Diabetes mellitus Heart disease Social History Social History Social History: Caffeine-occasionally Smoking status: Never smoker Second hand tobacco smoke exposure: No Alcohol intake: never Substance use: never Substance use type: does not use Do You Feel Safe in your Home?: Yes Lack of Transportation: No Lack of Food: Never True Current Housing: I Have Housing Concerned About Future Housing: No Difficulty Paying Gas/Electric Bills: No Difficulty Paying for Meds: No Currently Unemployed: No Education: Bachelor's Degree Difficulty w/ Childcare or Family Care: No Living arrangements: with family Occupation/Education: occupation Additional occupation/education comments: Homemaker Gender identity (if verbalized by the patient): Female Spiritual care concerns: No Agree to blood products: Yes Meds Home Medications and Allergies Home Medications ?Medication ?Instructions ?Recorded ?Confirmed ?Type vit-iron fum-folic ac 1 tablet PO 07/21/24 History doxylamine succinate 25 mg tablet 25 mg PO HS PRN sleep 01/14/25 02/10/25 History (Unisom (doxylamine)) Allergies Allergy/AdvReac Type Severity Reaction Status Date / Time No Known Allergies Allergy Verified 01/14/25 12:31 Vital Signs Vital Signs - 24 hr 02/10/25 04:24 02/10/25 04:31 02/10/25 04:49 Temperature 36.4 C Pulse Rate 117 H Blood Pressure 113/73 Pulse Oximetry Oxygen Delivery Room Air 02/10/25 05:00 02/10/25 05:15 02/10/25 05:30 Temperature Pulse Rate 95 107 H 106 H Blood Pressure 130/72 106/65 106/74 Pulse Oximetry Oxygen Delivery 02/10/25 05:45 02/10/25 05:53 02/10/25 05:54 Temperature Pulse Rate 92 104 H Blood Pressure 120/77 124/69 Pulse Oximetry 100 Oxygen Delivery 02/10/25 05:58 02/10/25 06:00 02/10/25 06:03 Temperature Pulse Rate 92 90 Blood Pressure 120/76 127/73 Pulse Oximetry 100 99 Oxygen Delivery 02/10/25 06:07 02/10/25 06:08 02/10/25 06:09 Temperature 36.6 C Pulse Rate 104 H 99 Blood Pressure 111/72 116/70 Pulse Oximetry 98 Oxygen Delivery 02/10/25 06:10 02/10/25 06:12 02/10/25 06:13 Temperature Pulse Rate 113 H 78 Blood Pressure 102/62 74/30 L Pulse Oximetry 97 Oxygen Delivery 02/10/25 06:14 02/10/25 06:15 02/10/25 06:18 Temperature Pulse Rate 92 79 85 Blood Pressure 86/50 L 103/52 L 108/57 L Pulse Oximetry 99 Oxygen Delivery 02/10/25 06:21 02/10/25 06:23 02/10/25 06:24 Temperature Pulse Rate 90 99 Blood Pressure 97/50 L 96/52 L Pulse Oximetry 98 Oxygen Delivery 02/10/25 06:27 02/10/25 06:28 02/10/25 06:30 Temperature Pulse Rate 94 97 Blood Pressure 96/48 L 96/68 L Pulse Oximetry 98 Oxygen Delivery 02/10/25 06:33 02/10/25 06:36 02/10/25 06:38 Temperature Pulse Rate 96 99 Blood Pressure 100/49 L 104/54 L Pulse Oximetry 98 100 Oxygen Delivery 02/10/25 06:39 02/10/25 06:42 02/10/25 06:43 Temperature Pulse Rate 102 H 111 H Blood Pressure 113/63 98/61 L Pulse Oximetry 100 Oxygen Delivery 02/10/25 06:45 02/10/25 06:48 02/10/25 06:51 Temperature Pulse Rate 81 93 92 Blood Pressure 101/67 93/54 L 101/55 L Pulse Oximetry 99 Oxygen Delivery 02/10/25 06:53 02/10/25 06:54 02/10/25 06:57 Temperature Pulse Rate 91 103 H Blood Pressure 94/64 L 110/58 L Pulse Oximetry 100 Oxygen Delivery 02/10/25 06:58 02/10/25 07:00 02/10/25 07:03 Temperature Pulse Rate 92 89 Blood Pressure 99/56 L 107/60 Pulse Oximetry 99 99 Oxygen Delivery 02/10/25 07:06 02/10/25 07:08 02/10/25 07:13 Temperature Pulse Rate 97 Blood Pressure 95/46 L Pulse Oximetry 98 100 Oxygen Delivery 02/10/25 07:15 02/10/25 07:18 02/10/25 07:23 Temperature Pulse Rate 91 Blood Pressure 100/55 L Pulse Oximetry 100 100 Oxygen Delivery 02/10/25 07:28 02/10/25 07:30 02/10/25 07:33 Temperature Pulse Rate 89 Blood Pressure 114/70 Pulse Oximetry 100 100 Oxygen Delivery Exam Const: General: cooperative and healthy appearing Neck: Neck: normal visual inspection Chest: Chest palpation & inspection: normal inspection of the chest Resp: Effort & Inspection: normal respiratory effort Cardio: Rate: regular rate Rhythm: regular rhythm GI: Other: gravid/soft Back/Spine/Pelvis: Back: no CVA tenderness Skin: General skin exam: normal color Neuro: General: patient oriented x3 Extrem: General: normal to inspection H&P: Results Labs Labs: Short CBC 02/10/25 Range/Units 04:51 WBC 9.7 (4.5-10.0) K/mm3 Hgb 10.9 L (12.0-15.0) g/dL Hct 33.8 L (37.0-47.0) % Plt Count 258 (150-375) k/mm3 Assessment and Plan Assessment and plan (1) Encounter for trial of labor: Status: Acute Plan TOLAC IUPC in place epidural in place FHR category 1 contractions every 2-4 minutes co-managing with Dr. Mccall
[2025-02-10] MEDS: miSOPROStol 200 MCG TABLET 1000 MCG RECTAL (10:17)
--- NOTE | 2025-02-10 10:24 | PM.OBPRVD ---
OB - Vaginal Delivery Note Procedure Delivery date: 02/10/25 Events: Previous Delivery Induction method: AROM and Per Pitocin Protocol Delivery monitor: External FHT and Internal Uterine Route of delivery: Episiotomy description: None Laceration Description: Vaginal Delivery repair: vicryl Specimen: No Quantitative Blood Loss (ml): 125 Anesthesia type: Epidural Disposition: Floor Complications: No immediate complications Baby Date of : 02/10/25 Time of : 10:06 Gestational Age by Date: 39 gender: Male Weight (pounds): 7 Weight (ounces): 6 presentation: vertex position: Right Occiput Anterior Placenta delivery description: Spontaneous Cord Vessel Description: 3 Vessels, Clamped/Cut and Delayed Cord Clamping score one minute: 8 score five minutes: 9
[2025-02-10] MEDS: OXYTOCIN 30 UNITS/NS 500 ML 30 UNITS/500 ML BAG 125 UNITS IV CONT (11:04)
[2025-02-10] MEDS: ACETAMINOPHEN 325 MG TABLET 650 MG PO (19:05)
[2025-02-10] MEDS: DIBUCAINE 1% OINTMENT 30 GM TUBE 1 APPLIC TOPICAL (19:06)
[2025-02-10] MEDS: IBUPROFEN 600 MG TABLET PO (19:06)
[2025-02-10] MEDS: BENZOCAINE 20% AER SPR (*SP) 56 GM CAN 1 SPRAY TOPICAL (19:06)
[2025-02-10] MEDS: WITCH HAZEL 40 PADS 1 PAD TOPICAL (19:06)
[2025-02-11 00:30] VITALS: BP 98/69; PULSE 68; RESP 14; TEMP 36.8; O2SAT 100
[2025-02-11] MEDS: ACETAMINOPHEN 325 MG TABLET 650 MG PO (01:40)
[2025-02-11] MEDS: IBUPROFEN 600 MG TABLET PO (01:41)
[2025-02-11 05:05] VITALS: BP 112/76; PULSE 84; RESP 14; TEMP 36.6; O2SAT 100
[2025-02-11 07:24] VITALS: BP 121/78; PULSE 86; RESP 16; TEMP 36.6; O2SAT 100
--- NOTE | 2025-02-11 09:46 | P.PNOB_ITS ---
OB - PN: Subj Subjective Date/time seen: 02/11/25 09:46 Interval history: PPD#1 s/p Doing well, no issues Voiding without issue Tolerating general diet Ready for discharge home today OB - PN: Obj Data Labs 02/11/25 04:30 Labs: Laboratory Results - last 24 hr 02/11/25 04:30 Hgb 11.0 L Hct 37.0 OB - PN A/P Assessment and Plan (1) (spontaneous vaginal delivery): Code(s): O80 - Encounter for full-term uncomplicated delivery Status: Acute Plan day: 1 Plan: routine care and discharge home Time Spent With Patient Time: Total time spent is greater than 50% in coordination of care (as documented) at patient's floor/unit and/or counseling patient: Review of Systems 2 Review of Systems: All systems reviewed & are unremarkable except as noted in HPI and below Exam 2 Const: General: comfortable and no acute distress O rientation/consciousness: patient oriented x3 Resp: Effort & Inspection: normal respiratory effort
--- NOTE | 2025-02-11 09:49 | P.DS_ITS ---
DS: Admitting Diagnosis Discharge Date 02/11/25 Admitting Diagnosis induction of labor DS: Discharge Diagnosis Discharge Diagnosis (1) (vaginal after ): Code(s): O34.219 - Maternal care for unspecified type scar from previous delivery Status: Acute OB - DS: Summary OB Procedures : None OB Procedures Intrapartum: OB Procedures: : None Peripartum Data Laceration Description: Vaginal Episiotomy description: None Time Spent with Patient Time attestation: Total time spent providing and/or coordinating discharge services: DS: Data Data Completed and Pending Labs on day of discharge: Labs from last 24 hours 02/11/25 04:30 Hgb 11.0 L Hct 37.0 Discharge Plan Discharge Attending physician on discharge: Jesse Mcclal Discharging Clinician: Jesse Mccall Patient Disposition: Home, Self-Care Activity: may shower, as tolerated and pelvic rest Diet: as tolerated Patient Instructions: Antibiotic Form Patient Language: Tamazight Stand Alone Forms: General Discharge Information Follow-up/Referrals: Keyla Meng CNM [Certified Nurse Motor [employer]acer] - 4 Weeks Discharge Medications: New docusate sodium 100 mg Capsule 100 mg PO BID PRN (Reason: Constipation) Qty: 60 0RF ibuprofen 600 mg Tablet 600 mg PO Q6H PRN (Reason: Cramping) Qty: 30 0RF Continued vit-iron fum-folic ac [ Formula] 1 tablet PO Unisom (doxylamine) 25 mg tablet 25 mg PO HS PRN (Reason: sleep) Date of admission: 02/10/25 04:13 Primary Care Provider: Kole Aparicio Admitting Provider: Lizandro Oakley Attending physician on admission: Lizandro Oakley Condition: Stable
[2025-02-14 11:18] VITALS: BP 114/72; PULSE 95; RESP 18; TEMP 37.2; O2SAT 100
== END 2025-02-11 13:00 | disposition home or self-care (01) | DRG 806 ==
LOC: ANHLDR 04:16 → ANHOB2 13:10
PROVIDERS: Advanced Practice Midwife; Admitting Provider Obstetrics & Gynecology; PCP Family Medicine; Visit Provider Obstetrics & Gynecology
DX: O34.211 Maternal care for low transverse scar from previous cesarean delivery (principal); O71.4 Obstetric high vaginal laceration alone; Z37.0 Single live birth; O62.3 Precipitate labor; Z3A.39 39 weeks gestation of pregnancy
CPT/HCPCS: 36415; 85014; 85018; 85025; 86593; 86703; 86850; 86900; 86901; A9270; G0432; J2371; J2590; J2795; J7120